=== PATIENT | male | born 1935 | race Caucasian/White ===

== ENCOUNTER 2017-09-26 23:23 | Emergency (ER) | payer MEDICARE ==
[~2017-09-26] VITALS: Ht 175.3 cm; Wt 77.3 kg
[2017-09-27] MEDS ORDERED: ALBU8.5H8 IH (00:12)
[2017-09-27] MEDS ORDERED: PROP20TA18 PO (00:12)
[2017-09-27] MEDS ORDERED: BIMA12.5OS (00:12)
[2017-09-27] MEDS ORDERED: ESCI10TA PO (00:12)
[2017-09-27] MEDS ORDERED: PRAV40TA4 PO (00:12)
[2017-09-27] MEDS ORDERED: PERCT PO (00:12)
[2017-09-27] MEDS ORDERED: FOLI1 PO (00:12)
[2017-09-27] MEDS ORDERED: FLUT44HFA IH (00:12)
[2017-09-27 03:10] VITALS: BP 118/83
== END 2017-09-27 03:30 | disposition home or self-care (01) ==
LOC: EMS 23:23
DX: T83.84XA Pain due to genitourinary prosthetic devices, implants and grafts, initial encounter (principal); R33.9 Retention of urine, unspecified; I10 Essential (primary) hypertension; E78.00 Pure hypercholesterolemia, unspecified; Z88.6 Allergy status to analgesic agent; Z88.8 Allergy status to other drugs, medicaments and biological substances
CPT/HCPCS: 51702; 99284